=== PATIENT | male | born 1965 | race Caucasian/White ===

== ENCOUNTER 2017-07-19 13:58 | Emergency (ER) | payer OTHER ==
--- NOTE | 2017-07-19 14:51 | ER Document Report ---
ED Extremity Problem, Lower - General Chief Complaint: Knee Injury Stated Complaint: RIGHT KNEE PAIN Time Seen by Provider: 07/19/17 14:36 Mode of Arrival: Ambulatory Information source: Patient Notes: Patient is a 51-year-old male comes emergency room complaining of right knee pain. Patient states that he is also forced for living. States he was helping a friend yesterday evening put in a new floor when he went to get up off the floor felt a pop in his right knee and has not been able to bear weight since. Patient states the pain is in the right side posterior and posterior area of the right knee. There is no pain anteriorly on the patella or patellar tendons. He denies any other injuries states that he was just getting up off the floor as he does all day. TRAVEL OUTSIDE OF THE [place] IN LAST 30 DAYS: No - HPI Patient complains to provider of: Injury Location: Knee, Thigh Occurred: Other - Last evening Where: Other - [facility] Onset/Duration: Sudden Quality of pain: Sharp, Throbbing Context: Wearing shoes Recent injury: Yes Associated symptoms: Unable to bear weight Exacerbated by: Movement, Walking Relieved by: Ice, Rest, Other - Sensation - Related Data Allergies/Adverse Reactions: No Known Allergies Allergy (Unverified 07/19/17 14:02) Past Medical History - General Information source: Patient - Social History Smoking Status: Current Every Day Smoker Cigarette use (# per day): Yes - 1 pack a day Chew tobacco use (# tins/day): No Smoking Education Provided: Yes Frequency of alcohol use: Occasional Drug Abuse: None 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 Lives with: Family Family History: Reviewed & Not Pertinent Patient has suicidal ideation: No Patient has homicidal ideation: No Renal/ Medical History: Denies: Hx Peritoneal Dialysis Review of Systems - Review of Systems Constitutional: No symptoms reported EENT: No symptoms reported Cardiovascular: No symptoms reported Respiratory: No symptoms reported Gastrointestinal: No symptoms reported Genitourinary: No symptoms reported Male Genitourinary: No symptoms reported Musculoskeletal: Joint pain, Muscle pain Skin: No symptoms reported Hematologic/Lymphatic: No symptoms reported Neurological/Psychological: No symptoms reported -: Yes All other systems reviewed and negative Physical Exam - Vital signs Vitals: Temp Pulse Resp BP Pulse Ox 98.4 F 63 18 142/76 H 98 07/19/17 14:12 07/19/17 14:12 07/19/17 14:12 07/19/17 14:12 07/19/17 14:12 Interpretation: Hypertensive - General General appearance: Other - Uncomfortable. In distress: None - HEENT Head: Normocephalic, Atraumatic - Respiratory Respiratory status: No respiratory distress Chest status: Nontender Breath sounds: Normal. No: Decreased air movement, Nonproductive cough, Productive cough, Rales, Rhonchi, Stridor, Wheezing, Other - Cardiovascular Rhythm: Regular Heart sounds: Normal auscultation Murmur: No - Extremities General upper extremity: Normal inspection, Normal ROM General lower extremity: Tender, Other. No: Normal inspection, Nontender, Edema , Normal color, Normal ROM, Normal strength, Normal temperature, Normal weight bearing, Dean's sign Knee: Tender, Pain with ROM, Patellar tendon intact, Popliteal fossa tender, Other - Physical examination patient's right knee shows there to be no swelling or edema. Pain location is right lateral posterior. Patient has no laxity on any movement. Vascular exam is normal. Pain appears to be right lateral posteriorly to palpation. Patient can extend his leg but flexion is difficult. Increased amount of pain with flexion. Area appears to be a an insertion point possible.. Could be the lateral collateral ligament, Acuate Popliteal ligamet, or biceps femoris area. Although there is no instability noted. Calf: Normal - Neurological Neuro grossly intact: Yes Cognition: Normal Orientation: AAOx4 [place] Coma Scale Eye Opening: Spontaneous [place] Coma Scale Verbal: Oriented [place] Coma Scale Motor: Obeys Commands [place] Coma Scale Total: 15 Speech: Normal - Skin Skin Temperature: Warm Skin Moisture: Dry Skin Color: Normal, [place] Course - Vital Signs Vital signs: Temp Pulse Resp BP Pulse Ox 98.4 F 63 18 142/76 H 98 07/19/17 14:12 07/19/17 14:12 07/19/17 14:12 07/19/17 14:12 07/19/17 14:12 - Transfer of Care Notes: 07/19/17 15:53 Patient was informed that his x-rays were negative with the exception for small effusion. I have discussed that x-rays are good for looking at Bones and the possibility of a pulled up piece of bone from a tendon. His were negative at this time. I have also informed him that I really believe that he has injury to either the lateral collateral ligament at the insertion or the arcuate popliteal ligament or the biceps femori. These all are in a general location the patient has tenderness and pain. I have informed him that I will be given him the orthopedic group locally that he can contact to see if they can accommodate him and that the final resolution of this problem is going to be an MRI. At that point treatment will depend on surgery versus physical therapy. Patient voices understanding of this and will contact or so on discharge. Procedures - Immobilization Right Posterior Knee Pre-Proc Neuro Vasc Exam: Normal Immobilizer type: Knee immobilizer Alignment checked and good: Yes Discharge - Discharge Clinical Impression: Acute internal derangement of right knee Condition: Good Disposition: HOME, SELF-CARE Instructions: Use of Crutches ([facility]), Ice & Elevation ([facility]), Suspected Internal Knee Injury ([facility]), Knee Immobilizing Splint ([facility]), Oral Narcotic Medication ([facility] ) Additional Instructions: Home and use the knee immobilizer at all times. You may open it up to ice down the knee 2-3 times a day as we discussed. You may take the medication as directed. I have given you the name of the orthopedist that we refer to from the emergency room is Dr. Lott. You may contact his office to see if we can accommodate you. Should you have any other concerns return to ER for recheck. Prescriptions: Hydrocodone/Acetaminophen [[place] 7.5-325 mg Tablet] 1 tab PO Q6 #10 tablet Ibuprofen 800 mg PO TID #30 tablet Referrals: HERMELINDO SIBLEY MD [Primary Care Provider] - Follow up as needed
--- NOTE | 2017-07-19 15:22 | RADIOLOGY REPORT (SQ) ---
EXAM DESCRIPTION: KNEE RIGHT 4 VIEWS COMPLETED DATE/TIME: 07/19/2017 3:05 pm REASON FOR STUDY: pain/injury COMPARISON: None. NUMBER OF VIEWS: Four views. TECHNIQUE: AP, lateral, and both oblique radiographic images acquired of the right knee. LIMITATIONS: None. FINDINGS: MINERALIZATION: Normal. BONES: No acute fracture or dislocation. No worrisome bone lesions. JOINT: Small suprapatellar knee joint effusion. SOFT TISSUES: No soft tissue swelling. No radio-opaque foreign body. OTHER: No other significant finding. IMPRESSION: Small suprapatellar knee joint effusion. No acute fracture or malalignment TECHNICAL DOCUMENTATION: JOB ID: [id number] [employer]- All Rights Reserved
[2017-07-19 16:18] VITALS: BP 139/88
== END 2017-07-19 16:18 | disposition home or self-care (01) ==
LOC: ER 13:58
DX: M23.91 Unspecified internal derangement of right knee (principal); M25.561 Pain in right knee; M25.461 Effusion, right knee; F17.210 Nicotine dependence, cigarettes, uncomplicated; Z71.6 Tobacco abuse counseling
CPT/HCPCS: 99283; 73564; L1830

== ENCOUNTER 2018-05-15 22:40 | Emergency (ER) | payer OTHER ==
[2018-05-15] MEDS ORDERED: IPRATROPIUM/ALBUTEROL 0.5-2.5 MG/3 ML AMPUL NEB ONE (23:40)
[2018-05-15] MEDS ORDERED: METHYLPREDNISOLONE INJ 125 MG/2 ML SDV IV ONE (23:40)
--- NOTE | 2018-05-15 23:46 | ER Document Report ---
ED General - General Chief Complaint: Chest Pain Stated Complaint: CHEST PAIN Time Seen by Provider: 05/15/18 23:38 Mode of Arrival: Ambulatory Information source: Patient TRAVEL OUTSIDE OF THE [place] IN LAST 30 DAYS: No - HPI Notes: Otherwise healthy 52-year-old white male smoker with [id number] history presents with report of cough congestion for the last 1-2 weeks with associated gradual progressive chest pain associated with the cough. The patient has no history of prior COPD or inhaler or nebulizer use in the past. The patient states the chest pain is lower costal margin and location. He denies any vomiting or fever or radiation of the pain out the arms. He states he cough is productive of minimal amount of phlegm. The patient denies any pharyngitis or earache or abdominal pain or constipation or diarrhea or dysuria. - Related Data Allergies/Adverse Reactions: No Known Allergies Allergy (Unverified 07/19/17 14:02) Past Medical History - General Information source: Patient - Social History Smoking Status: Current Every Day Smoker Frequency of alcohol use: None Drug Abuse: None Lives with: Family Family History: Reviewed & Not Pertinent Renal/ Medical History: Denies: Hx Peritoneal Dialysis Review of Systems - Review of Systems -: Yes All other systems reviewed and negative Physical Exam - Vital signs Vitals: Temp Pulse BP Pulse Ox 97.9 F 90 134/99 H 92 05/15/18 23:27 05/15/18 23:27 05/15/18 23:27 05/15/18 23:27 - Notes Notes: PHYSICAL EXAMINATION: GENERAL: Well-appearing, well-nourished and in no acute distress. HEAD: Atraumatic, normocephalic. EYES: Pupils equal round and reactive to light, extraocular movements intact, sclera anicteric, conjunctiva are normal. ENT: Nares patent, oropharynx clear without exudates. Moist mucous membranes. NECK: Normal range of motion, supple without lymphadenopathy LUNGS: Breath sounds coarse bilaterally with wheezes, somewhat diminished. HEART: Regular rate and rhythm without murmurs ABDOMEN: Soft, nontender, nondistended abdomen. No guarding, no rebound. No masses appreciated. Musculoskeletal: Normal range of motion, no pitting or edema. No cyanosis. Reproducible anterior chest wall pain on palpation. No crepitance or bony deformity. He localizes pain to the lower costal margin bilaterally. NEUROLOGICAL: Cranial nerves grossly intact. Normal speech, normal gait. Normal sensory, motor exams PSYCH: Normal mood, normal affect. SKIN: Warm, Dry, normal turgor, no rashes or lesions noted. Course - Re-evaluation Re-evalutation: 05/15/18 23:45 Patient was given IV Solu-Medrol and a DuoNeb. 05/16/18 03:13 Repeat lung exam after nebulizer treatment showed no wheezing. O2 sat was stable. Chest x-ray raised question of a nipple shadow versus nodule and chest x-ray was repeated using nipple markers. 05/16/18 03:29 Patient counseled at length about the need to quit smoking. 05/16/18 04:01 Repeat chest x-ray with nipple markers shows no evidence for pulmonary mass or nodule. No evidence for pneumonia or cardiac ischemia or acute [place] or CHF or clinical suggestion for pulmonary embolus. Patient reported no further pain after his cough subsided. - Vital Signs Vital signs: Temp Pulse Resp BP Pulse Ox 97.9 F 90 134/99 H 92 05/15/18 23:27 05/15/18 23:27 05/15/18 23:27 05/15/18 23:27 - Laboratory Result Diagrams: 05/16/18 00:29 05/16/18 00:29 Laboratory results interpreted by me: 05/16/18 00:29 Hgb 17.1 H Eosinophils % 15.7 H Absolute Eosinophils 1.4 H - EKG Interpretation by Me EKG shows normal: Sinus rhythm Additional EKG results interpreted by me: 05/15/18 23:44 EKG as interpreted by me showed normal sinus rhythm heart rate of 67. There is no gross evidence for acute [place] or ischemia noted. There is no old EKG available for comparison. Discharge - Discharge Clinical Impression: COPD with acute exacerbation, Tobacco abuse, Bronchitis Chest pain Qualifiers: Chest pain type: intercostal pain Qualified Code(s): R07.82 - Intercostal pain Condition: Stable Disposition: HOME, SELF-CARE Instructions: Chest Wall Pain ([facility]), Chronic Obstructive Lung Disease ([facility]), Stop Smoking ([facility]) Additional Instructions: QUIT SMOKING!!! Return to the emergency department in case of, severe pain or difficulty breathing. Prescriptions: Albuterol Sulfate [Proair HFA Inhalation Aerosol 8.5 gm MDI] 2 puff IH Q4H PRN # 1 mdi PRN Reason: Azithromycin [Zithromax] 250 mg PO DAILY #4 tablet Prednisone [Deltasone 10 mg Tablet] 10 mg PO ASDIR PRN #21 tablet PRN Reason: Forms: Return to Work Referrals: HERMELINDO SIBLEY MD [Primary Care Provider] - Follow up as needed
[2018-05-16 00:52] LABS: ABSOLUTE BASOPHILS # (AUTO) 0.1 10^3/uL (0.0-0.2); ABSOLUTE EOSINOPHILS # (AUTO) 1.4 10^3/uL (0.0-0.6); ABSOLUTE LYMPHOCYTES (AUTO) 1.6 10^3/uL (0.5-4.7); ABSOLUTE MONOCYTES (AUTO) 0.7 10^3/uL (0.1-1.4); ABSOLUTE NEUT (AUTO) 5.1 10^3/uL (1.7-8.2); BASOPHILS % (AUTO) 0.6 % (0-2); EOSINOPHILS % (AUTO) 15.7 % (0-6); HEMATOCRIT 49.5 % (37.9-51.0); HEMOGLOBIN 17.1 g/dL (13.5-17.0); LYMPHOCYTES % (AUTO) 17.9 % (13-45); MEAN CORPUSCULAR HEMOGLOBIN 32.6 pg (27.0-33.4); MEAN CORPUSCULAR HGB CONC 34.5 g/dL (32.0-36.0); MEAN CORPUSCULAR VOLUME 94 fl (80-97); MONOCYTES % (AUTO) 7.5 % (3-13); PLATELET COUNT 314 10^3/uL (150-450); RED BLOOD COUNT 5.24 10^6/uL (4.35-5.55); RED CELL DISTRIBUTION WIDTH 13.6 % (11.5-14.0); SEGMENTED NEUTROPHILS % (AUTO) 58.3 % (42-78); TOTAL CELLS COUNTED % (AUTO) 100 %; WHITE BLOOD COUNT 8.8 10^3/uL (4.0-10.5)
[2018-05-16 01:10] LABS: ALANINE AMINOTRANSFERASE 27 U/L (21-72); ALBUMIN 4.6 g/dL (3.5-5.0); ALKALINE PHOSPHATASE 75 U/L (38-126); ANION GAP 10 (5-19); ASPARTATE AMINO TRANSFERASE 26 U/L (17-59); BILIRUBIN,DIRECT 0.3 mg/dL (0.0-0.4); BILIRUBIN,TOTAL 0.7 mg/dL (0.2-1.3); BLOOD UREA NITROGEN 13 mg/dL (7-20); CALCIUM 10.1 mg/dL (8.4-10.2); CARBON DIOXIDE 30 mmol/L (22-30); CHLORIDE 101 mmol/L (98-107); GLUCOSE 90 mg/dL (75-110); TOTAL PROTEIN 7.4 g/dL (6.3-8.2)
[2018-05-16 01:22] LABS: NT PRO BNP 35 pg/mL (5-900)
[2018-05-16 01:27] LABS: TROPONIN I < 0.012 ng/mL
--- NOTE | 2018-05-16 03:05 | RADIOLOGY REPORT (SQ) ---
EXAM DESCRIPTION: XR CHEST 2 VIEWS COMPLETED DATE/TME: 05/15/2018 23:40 CLINICAL HISTORY: EXAM DESCRIPTION: 2 views of the chest CLINICAL HISTORY: dypsnea, wheezing, CP COMPARISON: None. FINDINGS: Frontal and lateral views of the chest. The cardiomediastinal silhouette has normal size and contour. No consolidation, pneumothorax, or pleural effusion. Calcified left upper lung granuloma. Hypodense structure in the left axillary region is not visualized on lateral view and may be external. There is a 0.8 cm indeterminate nodular opacity in the left midlung. Degenerative change of the spine. Likely calcified mediastinal lymph nodes. Upper abdominal soft tissues are unremarkable. IMPRESSION: 1. No acute pulmonary process identified. 2. There is a 0.8 cm nodular opacity in the left midlung which may represent a nipple shadow. Repeat radiographs with nipple markers recommended.
[2018-05-16] MEDS ORDERED: AZITHROMYCIN 250 MG TABLET PO ONE (03:12)
[2018-05-16] MEDS ORDERED: ALBUTEROL SULFATE HFA (90 MCG/PUFF) 8 GM MDI (1 MDI/ER DISP) IH ONE (03:12)
--- NOTE | 2018-05-16 03:47 | RADIOLOGY REPORT (SQ) ---
EXAM DESCRIPTION: XR CHEST 1 VIEW COMPLETED DATE/TME: 05/16/2018 03:06 CLINICAL HISTORY: repeat PA view with nipple markers COMPARISON: Same day FINDINGS: Frontal and lateral views of the chest. The cardiomediastinal silhouette has normal size and contour. No consolidation, pneumothorax, or pleural effusion. Calcified left upper lung granuloma. Hyperdense structure in the left axillary region is not visualized on lateral view and may be external. Nodular opacity in the left midlung corresponds to nipple markers. Degenerative change of the spine. Likely calcified mediastinal lymph nodes. Upper abdominal soft tissues are unremarkable. IMPRESSION: 1. No acute pulmonary process identified. 2. Previously visualized nodular opacity in the left midlung corresponds to the nipple markers compatible with a nipple shadow. Electronically signed by: Edvin Ornelas 05/16/2018 2:45
[2018-05-16 05:10] VITALS: BP 129/89
--- NOTE | 2018-05-16 07:50 | EKG REPORT ---
SEVERITY:- NORMAL ECG - SINUS RHYTHM : Confirmed by: Mateo Angela MD 16-May-2018 07:50:06
== END 2018-05-16 04:16 | disposition home or self-care (01) ==
LOC: ER 22:40
DX: J44.1 Chronic obstructive pulmonary disease with (acute) exacerbation (principal); R07.82 Intercostal pain; R07.9 Chest pain, unspecified; F17.210 Nicotine dependence, cigarettes, uncomplicated
CPT/HCPCS: 93005; 94640; 99285; 96374; 36415; 83735; 85025; 80053; 84484; 83880; 71046; 71045; 93010; J2930; J3490; J7620

== ENCOUNTER 2020-06-10 11:43 | Emergency (ER) | payer OTHER ==
[2020-06-10] MEDS ORDERED: KETOROLAC TROMETHAMINE 60 MG/2 ML SDV IM ONE (13:23)
--- NOTE | 2020-06-10 13:52 | RADIOLOGY REPORT (SQ) ---
EXAM DESCRIPTION: SHOULDER RIGHT 2 OR MORE VIEWS IMAGES COMPLETED DATE/TIME: 06/10/2020 1:43 pm REASON FOR STUDY: pain COMPARISON: None. NUMBER OF VIEWS: Three views. TECHNIQUE: Internal rotation, external rotation, and Y view images acquired of the right shoulder. LIMITATIONS: None. FINDINGS: MINERALIZATION: Normal. BONES: No acute fracture. No worrisome bone lesions. No significant osteophytes. GLENOHUMERAL JOINT: No significant findings. ACROMIOCLAVICULAR JOINT: No large osteophytes. SOFT TISSUES: No calcifications. VISUALIZED RIBS, SPINE, AND LUNG: No other significant finding. OTHER: No other significant finding. IMPRESSION: NEGATIVE STUDY OF THE RIGHT SHOULDER. NO EXPLANATION FOR PAIN. TECHNICAL DOCUMENTATION: JOB ID: [id number] [employer]- All Rights Reserved Reading location - IP/workstation name: [email or web address]
--- NOTE | 2020-06-10 14:00 | ER Document Report ---
HPI - HPI Patient complains to provider of: Right shoulder pain Time Seen by Provider: 06/10/20 13:19 Onset/Duration: Sudden Pain Level: 3 Context: 54-year-old male past medical history significant for COPD presents to the emergency room complaining of intermittent worsening right shoulder pain for the past 6 days. States he woke up last Tuesday with the pain. He denies any trauma or injury. No history of previous pain or injuries to his right shoulder. States has been taking Excedrin without relief. Describes it as a sharp stabbing pain. Patient is left-handed. Associated Symptoms: None Exacerbated by: Denies Relieved by: Denies Similar symptoms previously: No Recently seen / treated by doctor: No - ROS Systems Reviewed and Negative: Yes All other systems reviewed and negative - NEURO Neurology: DENIES: Weakness - CARDIOVASCULAR Cardiovascular: DENIES: Chest pain - RESPIRATORY Respiratory: DENIES: Trouble Breathing - REPRODUCTIVE Reproductive: DENIES: : - MUSCULOSKELETAL Musculoskeletal: REPORTS: Extremity pain - DERM Skin Color: Normal, [place] Skin Problems: None Past Medical History - General Information source: Patient - Social History Smoking Status: Current Every Day Smoker Chew tobacco use (# tins/day): No Frequency of alcohol use: Occasional Drug Abuse: None Family History: Reviewed & Not Pertinent Patient has homicidal ideation: No Renal/ Medical History: Denies: Hx Peritoneal Dialysis Vertical Provider Document - CONSTITUTIONAL Agree With Documented VS: Yes Exam Limitations: No Limitations General Appearance: Mild Distress - INFECTION CONTROL TRAVEL OUTSIDE OF THE [place] IN LAST 30 DAYS: No - HEENT HEENT: Atraumatic, Normocephalic - NECK Neck: Normal Inspection Course - Re-evaluation Re-evalutation: 06/10/20 14:30 Patient is resting comfortably with decreased pain. Reviewed x-ray results with patient. Counseled to take naproxen as prescribed. Outpatient follow-up with orthopedics as discussed. On-call physician was provided. Patient was given strict return to the emergency room guidelines. Return for any new or worsening symptoms. All questions were answered. Patient verbalized understanding and agrees with plan of care. - Vital Signs Vital signs: Temp Pulse Resp BP Pulse Ox 97.4 F 66 16 162/86 H 98 06/10/20 11:50 06/10/20 11:50 06/10/20 11:50 06/10/20 11:50 06/10/20 11:50 - Diagnostic Test Radiology reviewed: Reports reviewed Discharge - Discharge Clinical Impression: Right shoulder pain Qualifiers: Chronicity: acute Qualified Code(s): M25.511 - Pain in right shoulder Condition: Stable Disposition: HOME, SELF-CARE Instructions: Myalagia (Muscle Pain) ([facility]) Additional Instructions: Take naproxen as prescribed. Outpatient follow-up with orthopedics as discussed. Return to the emergency room for any new or worsening symptoms. Prescriptions: Naproxen 500 mg PO BID PRN #14 tablet PRN Reason: Referrals: HERMELINDO SIBLEY MD [Primary Care Provider] - Follow up as needed GABRIELA MENDEZ MD [ACTIVE STAFF] - Follow up as needed
[2020-06-10 14:43] VITALS: BP 167/80
== END 2020-06-10 14:36 | disposition home or self-care (01) ==
LOC: ER 11:43
DX: M25.511 Pain in right shoulder (principal); J44.9 Chronic obstructive pulmonary disease, unspecified; F17.200 Nicotine dependence, unspecified, uncomplicated
CPT/HCPCS: 99284; 96372; 73030; J1885